=== PATIENT | male | born 1960 | race Caucasian/White ===

== ENCOUNTER 2023-12-18 18:44 | Emergency (ER) | payer OTHER ==
[~2023-12-18] VITALS: Ht 172.7 cm; Wt 77.3 kg
[~2023-12-18 18:44] MED LIST: ACET650S24 PR; ATOR40TA28 PO; GABA-1216 PO; GLIP5TAB16 PO; INSU100V SQ; LISI-892 PO
[2023-12-18 19:01] VITALS: TEMP 98
[2023-12-18 21:24] VITALS: BP 92/65; PULSE 65; RESP 15
== END 2023-12-18 21:25 | disposition home or self-care (01) ==
LOC: EMS 18:44
DX: F25.9 Schizoaffective disorder, unspecified (principal); F69 Unspecified disorder of adult personality and behavior
CPT/HCPCS: 99281; Z7502